=== PATIENT | female | born 1980 | race Two or more races ===

== ENCOUNTER 2023-08-12 14:51 | Outpatient (RCR) | payer MEDICAID, SELFPAY | END 2023-08-31 23:59 | disposition home or self-care (01) | LOC: CPTX 14:51 | PROVIDERS: PCP Family Medicine; Referring Provider Family Medicine; Visit Provider Family Medicine | DX: Z53.9 Procedure and treatment not carried out, unspecified reason (principal) ==

== ENCOUNTER 2024-04-27 12:07 | Emergency (ER) | payer MEDICAID, SELFPAY ==
[2024-04-27 12:19] VITALS: BP 157/68; PULSE 64; RESP 20; TEMP 36.8; O2SAT 97
[2024-04-27 12:20] VITALS: BMI 65.0
[2024-04-27 12:23] VITALS: PULSE 76; RESP 18; O2SAT 97
--- NOTE | 2024-04-27 13:20 | XR_ITS ---
Examination: Lumbar spine 3 views Technique one AP lateral coned lateral lower lumbar spine 3 views Exam date and time: April 27, 2024 1610 hours INDICATIONS: Onset low back pain today. FINDINGS: Adequate alignment lumbar vertebral bodies Mild disc narrowing L4-L5 Moderate disc narrowing L5-S1 No spondylolisthesis IMPRESSION: Moderate degenerative disc disease L5-S1
[2024-04-27] MEDS: CYCLObenzaPRINE 5 MG TABLET 10 MG PO (13:49)
[2024-04-27] MEDS: HYDROcodone/APAP 5/325 TABLET 1 TAB PO (13:49)
[2024-04-27] MEDS: predniSONE 20 MG TABLET 60 MG PO ×2 (13:52)
--- NOTE | 2024-04-27 14:14 | EDNOTE_ITS ---
<Statement entered by Alicia Houser MD - 05/03/24 17:55> As co-signing physician, I was present and available for consult prn. I concur with the plan and care as documented by the midlevel provider. ED Back Injury Pain RME/HPI General Chief Complaint: Back Pain/Injury Stated Complaint: LOWER BACK PAIN Time Seen by Provider: 04/27/24 13:26 Source: patient Arrival date/time: 04/27/24 12:07 43-year-old female presents to the emergency department with complaints of lower back pain. History of degenerative disc disease and chronic pain presents with complaints of pain to her lower back for approximately 3 days. Reports she was seen by her PCP was given a Toradol shot however no symptoms improved. No fever, weakness, abdominal pain, saddle anesthesia, bowel/bladder incontinence noted. No hx of IVDA. Gait and sensation intact. Mode of arrival: ambulatory Limitations: no limitations Related Data Previous Rx's ?Medication ?Instructions ?Recorded hydrocodone 5 mg-acetaminophen 325 1 tab PO BID PRN pain #10 tabs 06/13/21 mg tablet ibuprofen 800 mg tablet 800 mg PO TID PRN pain #30 tabs 06/13/21 tramadol 50 mg tablet 50 mg PO TID PRN pain #21 tabs 11/21/21 cyclobenzaprine 10 mg tablet 10 mg PO TID PRN muscle spasm #20 01/17/22 tabs tramadol 50 mg tablet 50 mg PO TID PRN pain #21 tabs 01/17/22 cephalexin 500 mg capsule 500 mg PO QID #28 caps 03/08/22 tramadol 100 mg tablet 100 mg PO Q6H PRN pain #20 tabs 03/08/22 acetaminophen 500 mg capsule 500 mg PO Q6H PRN pain #60 caps 09/24/22 baclofen 5 mg tablet 5 mg PO BID #30 tabs 09/24/22 hydrocodone 5 mg-acetaminophen 325 1 tab PO BID PRN pain #10 tabs 12/25/22 mg tablet ibuprofen 800 mg tablet 800 mg PO TID PRN pain #30 tabs 12/25/22 naproxen 500 mg tablet 500 mg PO BID #30 tabs 07/19/23 acetaminophen 500 mg tablet 1,000 mg (2 x 500 mg) PO Q6H PRN 01/16/24 (Tylenol Extra Strength) pain #30 tabs ibuprofen 600 mg tablet 600 mg PO Q6H PRN pain #30 tabs 01/16/24 cyclobenzaprine 5 mg tablet 5 mg PO TID PRN muscle spasm #14 04/27/24 tabs hydrocodone 7.5 mg-acetaminophen 1 tab PO Q8H PRN pain #7 tabs 04/27/24 325 mg tablet Allergies Allergy/AdvReac Type Severity Reaction Status Date / Time adhesive tape Allergy Severe rash Verified 12/29/23 19:35 Penicillins Allergy Severe Rash Verified 12/29/23 19:35 Sulfa (Sulfonamide Allergy Severe Rash Verified 12/29/23 19:35 Antibiotics) Review of Systems Review of Systems Systems Reviewed: All systems reviewed, normal except as documented Narrative Review of Systems: Gen: No fever, no chills, no weight loss EYES: No discharge, no visual changes, no pain HEENT: No ear pain, no congestion, no sore throat PULM: No shortness of breath, no cough, no congestion CV: No chest pain, no dyspnea on exertion, no palpitations GI: No nausea, no vomiting, no diarrhea, no pain, no constipation : No frequency, no urgency,? no dysuria Musc/skel: No joint pain, ++ back pain Skin: No rash? ED Exam Narrative Physical exam: 43-year-old female awake and alert obese patient answering questions General Limitations: Present no limitations General appearance: Present alert and other (Appears to be in pain) Head Head exam: Present atraumatic Eye Eye exam: Present normal appearance, PERRL and EOMI ENT ENT exam: Present normal exam, normal oropharynx and mucous membranes moist Neck Neck exam: Present normal inspection, full ROM and trachea midline Chest Chest inspection: Present normal inspection and symmetric chest wall rise Respiratory Respiratory exam: Present normal lung sounds bilaterally Cardiovascular Cardiovascular exam: Present regular rate, normal rhythm and normal heart sounds Abdominal Exam Abdominal exam: Present soft and normal bowel sounds Extremities Exam Extremities exam: Present normal inspection and full ROM Back Exam Back exam: Present normal inspection, full ROM, muscle spasm and paraspinal tenderness; Absent CVA tenderness (R), CVA tenderness (L) or vertebral tenderness Neurological Exam Neurological exam: Present alert, oriented X3 and CN II-XII intact Psychiatric Psychiatric exam: Present normal affect and normal mood Skin Skin exam: Present warm, dry, intact and normal color Course Quality Measures none Orders Category Date Time Status XR lumbar spine 2-3V Stat Exams 04/27/24 13:20 Completed HCG Qualitative,Urine Stat Lab 04/27/24 15:19 Completed CYCLObenzaPRINE [Flexeril] Med 04/27/24 13:21 Discontinued 10 mg PO X1 ONE HYDROcodone*/APAP 5/325 [Ellerbe 5/325] Med 04/27/24 13:21 Discontinued 1 tab PO X1 ONE predniSONE Med 04/27/24 13:21 Discontinued 60 mg PO X1 ONE Vital Signs Vital signs: Vital Signs Temperature 98.3 F 04/27/24 12:19 Pulse Rate 64 04/27/24 12:19 Respiratory Rate 20 04/27/24 12:19 Blood Pressure 157/68 H 04/27/24 12:19 Pulse Oximetry (%) 97 04/27/24 12:19 Oxygen Delivery Method Room Air 04/27/24 12:19 Back Pain / Injury Patient data External records reviewed:: [facility] previous records Clinical information provided by:: patient Social determinants that could affect healthcare access:: none Patient has the following chronic illnesses:: Chronic back pain How is presenting disease/condition affected by chronic disease/condition?: exacerbated by Evaluation data The following diagnostics were reviewed and interpreted by me:: radiology exam(s) Lab and/or radiology exams considered but not ordered:: No Interpretation Summary: Examination: Lumbar spine 3 views Technique one AP lateral coned lateral lower lumbar spine 3 views Exam date and time: April 27, 2024 1610 hours INDICATIONS: Onset low back pain today. FINDINGS: Adequate alignment lumbar vertebral bodies Mild disc narrowing L4-L5 Moderate disc narrowing L5-S1 No spondylolisthesis IMPRESSION: Moderate degenerative disc disease L5-S1 Medications / Prescriptions Medications or Prescriptions considered but not ordered:: No Medication administrations:: Medication Administration History Discontinued Medications Hydrocodone Bitart/Acetaminophen (Hydrocodone/Apap 5/325 Tablet) 1 tab PO X1 ONE Stop: 04/27/24 13:22 Last Admin: 04/27/24 13:49 Dose: 1 tab Documented By: VIN Cyclobenzaprine HCl (Cyclobenzaprine 5 Mg Tablet) 10 mg PO X1 ONE Stop: 04/27/24 13:22 Last Admin: 04/27/24 13:49 Dose: 10 mg Documented By: VIN Prednisone (Prednisone 20 Mg Tablet) 60 mg PO X1 ONE Stop: 04/27/24 13:22 Last Admin: 04/27/24 13:52 Dose: 40 mg Documented By: Admin: 04/27/24 13:52 Dose: 20 mg Documented By: VIN All medications administered and effective Consultations Consultation(s) initiated? (list below): No Diagnosis Differential diagnosis back pain/injury: lumbar radiculopathy, sciatica and strain of lumbar region Most likely diagnosis given after review of the tests above:: Lumbar radiculopathy Admission Indicated Admission indicated?: not indicated Admission Request Was there a request for admission?: No Disposition Plan Disposition Plan: Discharge Discharge Attestation Discharge Attestation: The patient and all family members were given an opportunity to ask questions and understood the discharge instructions. Discharge instructions specifically effects, indications for sooner follow up or return to the emergency department, and the expected course of current diagnosis. Patient condition: Stable Discharge Plan Plan Patient Disposition: HOME (Self Care) Patient condition on transfer: Stable Prescriptions/Referrals Prescriptions/Med Rec: New hydrocodone-acetaminophen 7.5-325 mg tablet 1 tab PO Q8H MDD 3 PRN (Reason: pain) Qty: 7 0RF cyclobenzaprine 5 mg tablet 5 mg PO TID PRN (Reason: muscle spasm) Qty: 14 0RF No Action ibuprofen 800 mg tablet 800 mg PO TID PRN (Reason: pain) Qty: 30 0RF hydrocodone-acetaminophen 5-325 mg tablet 1 tab PO BID MDD 10 PRN (Reason: pain) Qty: 10 0RF tramadol 50 mg tablet 50 mg PO TID PRN (Reason: pain) Qty: 21 0RF acetaminophen 500 mg capsule 500 mg PO Q6H PRN (Reason: pain) Qty: 60 0RF baclofen 5 mg tablet 5 mg PO BID Qty: 30 0RF ibuprofen 800 mg tablet 800 mg PO TID PRN (Reason: pain) Qty: 30 0RF hydrocodone-acetaminophen 5-325 mg tablet 1 tab PO BID MDD 10 PRN (Reason: pain) Qty: 10 0RF ibuprofen 600 mg tablet 600 mg PO Q6H PRN (Reason: pain) Qty: 30 0RF acetaminophen [Tylenol Extra Strength] 500 mg tablet 1,000 mg PO Q6H PRN (Reason: pain) Qty: 30 0RF tramadol 50 mg tablet 50 mg PO TID PRN (Reason: pain) Qty: 21 0RF cyclobenzaprine 10 mg tablet 10 mg PO TID PRN (Reason: muscle spasm) Qty: 20 0RF tramadol 100 mg tablet 100 mg PO Q6H PRN (Reason: pain) Qty: 20 0RF cephalexin 500 mg capsule 500 mg PO QID Qty: 28 0RF naproxen 500 mg tablet 500 mg PO BID Qty: 30 0RF Referrals: No Primary/Family,Physician [Primary Care Provider] - In 1 week Problem List Clinical Impression: Degenerated intervertebral disc Patient/Caregiver Discharge Instructions Discharge Activity: activity as tolerated Additional Instructions: It is very important that you follow-up with your primary doctor for further evaluation about your back. Advised patient of nonpharmacologic treatment with superficial heat, massage, acupuncture, or spinal manipulation If pharmacologic treatment is desired, good choice is nonsteroidal anti- inflammatory drugs (NSAIDs) or skeletal muscle relaxants. Advised patient that Physical therapy is often incorporated as a component of conservative therapy Advised to start medications of: Flexeril, a couple of Ellerbe's was sent to the pharmacy. Turn to the emergency department this any worsening symptoms change in condition. Print Language: Citizen Of [place] Stand Alone Forms: Andreea Award Info., Patient Portal Info Letter PA/DAFNE Supervising Physician PA/DAFNE Supervising Physician: dr Heard
[2024-04-27 15:56] LABS: HCG Qualitative,Urine Negative
== END 2024-04-27 17:07 | disposition home or self-care (01) ==
PROVIDERS: Nurse Practitioner Primary Care; Emergency Provider Emergency Medicine
DX: M51.370 Other intervertebral disc degeneration, lumbosacral region with discogenic back pain only (principal)
CPT/HCPCS: 72100; 81025; 99283; J7512; A9270

== ENCOUNTER 2024-05-20 11:19 | Emergency (ER) | payer MEDICAID, SELFPAY ==
[2024-05-20 11:19] VITALS: BMI 65.6
[2024-05-20 11:30] VITALS: BP 137/78; PULSE 70; RESP 20; TEMP 37.1; O2SAT 97
--- NOTE | 2024-05-20 11:40 | EKG_ITS ---
[facility] Test Date: 2024-05-20 Pat Name: JEANNE JACKSON Department: Room: - Gender: Female Health Information Coder: : [id number] Requested By: Neville Ross Order Number: [id number] Reading MD: Neville Ross Measurements Intervals [place] Rate: 68 P: 38 NE: 169 QRS: -5 QRSD: 104 T: 2 QT: 395 QTc: 422 Interpretive Statements SINUS RHYTHM Compared to ECG 10/12/2019 21:59:38 No significant changes /store/S0/[id number].pdf
--- NOTE | 2024-05-20 11:40 | XR_ITS ---
Examination: PA chest single view Technique: Upright PA chest single view Exam date and time: May 20, 2024 1205 hrs. Indications: Shortness of breath today chest pain Findings: Mild prominence left ventricle. No pneumonia or pulmonary edema. The osseous structures are intact Impression: No active disease
--- NOTE | 2024-05-20 11:40 | XR_ITS ---
Examination: CT brain head without contrast. 2-D sagittal coronal reconstructions Date and time of exam:May 20, 2024 1247 hrs. Indications: Headaches dizziness beginning today CTDI: vol (mGy):57.5 DLP: (mGycm):1156 Technique: Multiple CT axial sections of the brain have been obtained, 5 mm slice thickness. Contrast has not been administered. 2-D sagittal, coronal reconstructions have been obtained Low dose protocols were performed. One or more of the following dose reduction techniques were used; automated exposure control, adjustment of the mA and/or KV according to patient size, use of iterative reconstruction technique. Findings: No significant ventricular enlargement. Intra-axial or extra-axial hemorrhage density is not seen. No mass effect or midline shift Basal cisterns are not remarkable. Fourth ventricle is midline. Cranial vault intact. Impression: Negative for acute hemorrhage, mass effect or midline shift As clinically warranted, if symptoms persist, consider brain MRI follow-up without contrast
--- NOTE | 2024-05-20 11:44 | EDNOTE_ITS ---
<Statement entered by Alicia Houser MD - 05/20/24 15:34> As co-signing physician, I was present and available for consult prn. I concur with the plan and care as documented by the midlevel provider. ED Dizzyness RME/HPI General Chief Complaint: Dizziness Stated Complaint: DIZZINESS X30 MINS. Time Seen by Provider: 05/20/24 11:35 Arrival date/time: 05/20/24 11:19 RME / HPI RME / HPI Narrative: 43-year-old female patient with no significant medical history, except for morbid obesity, came in with family for evaluation regarding sudden onset of dizziness. Patient developed sudden onset of dizziness, described as everything spinning, severity moderate, associated with headache, nausea, neck pain, left arm pain. Patient denies any upper or lower extremity weakness. Patient is ambulatory. Denies any fever denies any sore throat denies any cough. No medications taken prior to arrival. Related Data Previous Rx's ?Medication ?Instructions ?Recorded hydrocodone 5 mg-acetaminophen 325 1 tab PO BID PRN pain #10 tabs 06/13/21 mg tablet ibuprofen 800 mg tablet 800 mg PO TID PRN pain #30 tabs 06/13/21 tramadol 50 mg tablet 50 mg PO TID PRN pain #21 tabs 11/21/21 cyclobenzaprine 10 mg tablet 10 mg PO TID PRN muscle spasm #20 01/17/22 tabs tramadol 50 mg tablet 50 mg PO TID PRN pain #21 tabs 01/17/22 cephalexin 500 mg capsule 500 mg PO QID #28 caps 03/08/22 tramadol 100 mg tablet 100 mg PO Q6H PRN pain #20 tabs 03/08/22 acetaminophen 500 mg capsule 500 mg PO Q6H PRN pain #60 caps 09/24/22 baclofen 5 mg tablet 5 mg PO BID #30 tabs 09/24/22 hydrocodone 5 mg-acetaminophen 325 1 tab PO BID PRN pain #10 tabs 12/25/22 mg tablet ibuprofen 800 mg tablet 800 mg PO TID PRN pain #30 tabs 12/25/22 naproxen 500 mg tablet 500 mg PO BID #30 tabs 07/19/23 acetaminophen 500 mg tablet 1,000 mg (2 x 500 mg) PO Q6H PRN 01/16/24 (Tylenol Extra Strength) pain #30 tabs ibuprofen 600 mg tablet 600 mg PO Q6H PRN pain #30 tabs 01/16/24 cyclobenzaprine 5 mg tablet 5 mg PO TID PRN muscle spasm #14 04/27/24 tabs hydrocodone 7.5 mg-acetaminophen 1 tab PO Q8H PRN pain #7 tabs 04/27/24 325 mg tablet meclizine 50 mg tablet 50 mg PO BID PRN dizziness #30 tabs 05/20/24 Allergies Allergy/AdvReac Type Severity Reaction Status Date / Time adhesive tape Allergy Severe rash Verified 05/20/24 11:22 Penicillins Allergy Severe Rash Verified 05/20/24 11:22 Sulfa (Sulfonamide Allergy Severe Rash Verified 05/20/24 11:22 Antibiotics) Review of Systems Review of Systems Narrative Review of Systems: Review of system reviewed and within normal limits except mentioned in HPI ED Exam Narrative Physical exam: VITAL SIGNS: Reviewed. GENERAL APPEARANCE: Alert and interactive, follows commands, no acute distress, HEAD AND FACE: Non-traumatic. ENT: PERRL, pink conjunctivitis, eyelid no trauma, Mucous membrane moist. NECK: Supple, nontender, no nuchal rigidity. CHEST: No tenderness, no crepitus, no paradoxical movement, no retractions. LUNGS: Clear, well ventilated, symmetric, no rales, no wheezing, no ronchi, no stridor, good breath sounds bilaterally. HEART: Regular rate, regular rhythm, no murmur, no gallops. ABDOMEN: Soft, positive bowel sounds, nondistended, no guarding, nontender, no rebound, no masses, RECTAL: Deferred. GENITAL: Deferred. NEUROLOGICAL: Gross motor function intact sensory function intact, Appropriate for age. MUSCULOSKELETAL: low back nontender, full range of motion. EXTREMITIES: Nontender, full range of motion. SKIN: Color pink, dry, no rash, no lacerations, no abrasions, no contusions. LYMPHATICS: Deferred. Course Quality Measures none Orders Category Date Time Status EKG (ED ONLY) *Do not use* NOW Care 05/20/24 11:[address] head/brain wo con Stat Exams 05/20/24 11:40 Completed EKG (ED Only) Stat Exams 05/20/24 11:40 Draft XR chest 1V Stat Exams 05/20/24 11:40 Completed B-Type Natriuretic Peptide Stat Lab 05/20/24 12:03 Completed CBC Stat Lab 05/20/24 12:03 Completed Comprehensive Metabolic Panel Stat Lab 05/20/24 12:03 Completed HCG Qualitative,Urine Stat Lab 05/20/24 12:00 Completed Partial Thromboplastin Time Stat Lab 05/20/24 12:03 Completed Troponin I Stat Lab 05/20/24 12:03 Completed Urinalysis, C/S if Indicated Stat Lab 05/20/24 12:00 Completed Acetaminophen Tab [Tylenol ES Tab] Med 05/20/24 11:40 Discontinued 1,000 mg PO X1 ONE Meclizine HCl [Antivert] Med 05/20/24 11:40 Discontinued 50 mg PO X1 ONE Ondansetron Odt [Zofran Odt] Med 05/20/24 11:40 Discontinued 4 mg PO X1 ONE Vital Signs Vital signs: Vital Signs Temperature 98.7 F 05/20/24 11:30 Pulse Rate 70 05/20/24 11:30 Respiratory Rate 20 05/20/24 11:30 Blood Pressure 137/78 H 05/20/24 11:30 Pulse Oximetry (%) 97 05/20/24 11:30 Oxygen Delivery Method Room Air 05/20/24 11:30 Dizziness MDM Narrative MDM Narrative:: 43-year-old female patient with no significant medical history, except for morbid obesity, came in with family for evaluation regarding sudden onset of dizziness. Patient developed sudden onset of dizziness, described as everything spinning, severity moderate, associated with headache, nausea, neck pain, left arm pain. Patient denies any upper or lower extremity weakness. Patient is ambulatory. Denies any fever denies any sore throat denies any cough. No medications taken prior to arrival CT scan of the head came back unremarkable. Chest x-ray also came back unremarkable laboratory workup all also all came back unremarkable. Patient is ambulatory 3 with no recurrence of dizziness . Treated with Meclizine and Tylenol with dramatic improvement Additionally considered atypical ACS but EKG normal and trop neg which is reassuring Patient appears nontoxic and hemodynamically stable. Patient discharged home and instructed to follow-up with primary care provider in 24 to 48 hours. Instructed to return to the emergency department immediately if worsening of symptoms Patient data External records reviewed:: None Clinical information provided by:: patient Social determinants that could affect healthcare access:: none Patient has the following chronic illnesses:: obesity How is presenting disease/condition affected by chronic disease/condition?: no chronic disease Evaluation data The following diagnostics were reviewed and interpreted by me:: lab results, radiology exam(s) and EKG tracing(s) Lab and/or radiology exams considered but not ordered:: None Interpretation Summary: EKG as interpreted by me showed sinus rhythm, ventricular rate of 65 bpm, no ST segment elevation depression noted. CT head came back unremarkable. Laboratory workup came back unremarkable. I personally reviewed and interpreted the x-ray of this patient. There is no acute abnormalities found, no infiltrates no pneumothorax no hemothorax normal chest x-ray. Review of other structures was without significant abnormal findings also. I additionally reviewed the radiologist report and agree with the interpretation. Meclizine Tylenol Zofran Medications / Prescriptions Medications or Prescriptions considered but not ordered:: Stable Medication administrations:: Medication Administration History Discontinued Medications Acetaminophen (Acetaminophen 500 Mg Tablet) 1,000 mg PO X1 ONE Stop: 05/20/24 11:41 Last Admin: 05/20/24 12:16 Dose: 1,000 mg Documented By: Meclizine HCl (Meclizine Hcl 25 Mg Tablet) 50 mg PO X1 ONE Stop: 05/20/24 11:41 Last Admin: 05/20/24 12:17 Dose: 50 mg Documented By: Ondansetron HCl (Ondansetron Odt 4 Mg Tabrap) 4 mg PO X1 ONE; Protocol Stop: 05/20/24 11:41 Last Admin: 05/20/24 12:17 Dose: 4 mg Documented By: Meclizine Tylenol and Zofran Consultations Consultation(s) initiated? (list below): No Diagnosis Dizziness Differential Diagnosis: benign paroxysmal positional vertigo and cerebrovascular accident Most likely diagnosis given after review of the tests above:: Dizziness Admission Indicated Admission indicated?: not indicated Admission Request Was there a request for admission?: No Disposition Plan Disposition Plan: Discharge Discharge Attestation Discharge Attestation: The patient and all family members were given an opportunity to ask questions and understood the discharge instructions. Discharge instructions specifically effects, indications for sooner follow up or return to the emergency department, and the expected course of current diagnosis. Patient condition: Stable Discharge Plan Plan Patient Disposition: HOME (Self Care) Disposition Comment: stable Prescriptions/Referrals Prescriptions/Med Rec: New meclizine 50 mg tablet 50 mg PO BID PRN (Reason: dizziness) Qty: 30 0RF No Action ibuprofen 800 mg tablet 800 mg PO TID PRN (Reason: pain) Qty: 30 0RF hydrocodone-acetaminophen 5-325 mg tablet 1 tab PO BID MDD 10 PRN (Reason: pain) Qty: 10 0RF tramadol 50 mg tablet 50 mg PO TID PRN (Reason: pain) Qty: 21 0RF acetaminophen 500 mg capsule 500 mg PO Q6H PRN (Reason: pain) Qty: 60 0RF baclofen 5 mg tablet 5 mg PO BID Qty: 30 0RF ibuprofen 800 mg tablet 800 mg PO TID PRN (Reason: pain) Qty: 30 0RF hydrocodone-acetaminophen 5-325 mg tablet 1 tab PO BID MDD 10 PRN (Reason: pain) Qty: 10 0RF ibuprofen 600 mg tablet 600 mg PO Q6H PRN (Reason: pain) Qty: 30 0RF acetaminophen [Tylenol Extra Strength] 500 mg tablet 1,000 mg PO Q6H PRN (Reason: pain) Qty: 30 0RF tramadol 50 mg tablet 50 mg PO TID PRN (Reason: pain) Qty: 21 0RF cyclobenzaprine 10 mg tablet 10 mg PO TID PRN (Reason: muscle spasm) Qty: 20 0RF tramadol 100 mg tablet 100 mg PO Q6H PRN (Reason: pain) Qty: 20 0RF cephalexin 500 mg capsule 500 mg PO QID Qty: 28 0RF naproxen 500 mg tablet 500 mg PO BID Qty: 30 0RF hydrocodone-acetaminophen 7.5-325 mg tablet 1 tab PO Q8H MDD 3 PRN (Reason: pain) Qty: 7 0RF cyclobenzaprine 5 mg tablet 5 mg PO TID PRN (Reason: muscle spasm) Qty: 14 0RF Referrals: No Primary/Family,Physician [Primary Care Provider] - In 1 week Problem List Clinical Impression: Dizziness, Vertigo Patient/Caregiver Discharge Instructions Discharge Activity: activity as tolerated Education Materials: Vertigo Medicine Tx Additional Instructions: Thank you for the opportunity for serving you today. You are stable for discharged . You are advised to: Follow-up with your PCP in 1 to 2 days Return to ED for worsening of symptoms Increase oral fluids Take medication as prescribed Print Language: [place] Stand Alone Forms: STinser Award Info., Patient Portal Info Letter PA/BRANNER MACHINE TENDER Supervising Physician PA/BRANNER MACHINE TENDER Supervising Physician: MD Yosi
[2024-05-20 12:12] LABS: Collection Type, Urine Clean Catch
[2024-05-20] MEDS: ACETAMINOPHEN 500 MG TABLET 1000 MG PO (12:16)
[2024-05-20] MEDS: ONDANSETRON ODT 4 MG TABRAP PO (12:17)
[2024-05-20] MEDS: MECLIZINE HCL 25 MG TABLET 50 MG PO (12:17)
[2024-05-20 12:21] LABS: Basophils # (Auto) 0.1 Thou/mm3 (0.0-0.2); Basophils % (Auto) 1 % (0-2.5); Eosinophils # (Auto) 0.4 Thou/mm3 (0.0-0.5); Eosinophils % (Auto) 5 % (0-10); Hematocrit 42.2 % (36.0-46.0); Hemoglobin 14.4 g/dL (12.0-16.0); Immature Granulocytes % (Auto) 1 % (0-0); Immature Granulocytes Auto 0.04 Thou/mm3 (0.00-0.00); Lymphocytes # (Auto) 2.5 Thou/mm3 (1.0-4.8); Lymphocytes % (Auto) 28 % (10-50); Mean Corpuscular HGB Conc 34.1 g/dl (31.0-37.0); Mean Corpuscular Hemoglobin 32.1 pg (25.0-35.0); Mean Corpuscular Volume 94 fL (80-100); Monocytes # (Auto) 0.5 Thou/mm3 (0.0-0.8); Monocytes % (Auto) 6 % (0-12); Neutrophils # (Auto) 5.3 Thou/mm3 (1.8-7.7); Neutrophils % (Auto) 60 % (37-80); Nucleated Red Blood Cell % 0 /100 WBC (0); Platelet Count 168 Thou/mm3 (140-440); RDW Standard Deviation 45.1 fL (36.4-46.3); Red Blood Count 4.49 Miln/mm3 (4.00-5.20); White Blood Count 8.9 Thou/mm3 (3.6-11.0)
[2024-05-20 12:26] LABS: HCG Qualitative,Urine Negative
[2024-05-20 12:29] LABS: Bilirubin,Urine Negative (Negative); Blood,Urine Negative (Negative); Clarity,Urine Turbid (Clear/Hazy); Color,Urine Yellow (Lt Yel-Yel); Culture Indicated,Urine Not Indicated; Glucose, Urine Negative (Negative); Ketones,Urine Negative (Negative); Leukocyte Esterase,Urine Negative (Negative); Nitrite,Urine Negative (Negative); Protein,Urine Negative (Neg - Trace); RBC,Urine 1 /hpf (0-3); Specific Gravity,Urine 1.021 (1.001-1.035); Squamous Epithelial Cell,Urine 8 /hpf (0-5); Urobilinogen,Urine Negative mg/dL (0.0-1.0); WBC,Urine 1 /hpf (0-5)
[2024-05-20 12:33] LABS: Partial Thromboplastin Time 20.5 Seconds (22.0-36.0)
[2024-05-20 12:38] LABS: Alanine Aminotransferase 25 U/L (10-49); Albumin, Serum 4.5 gm/dL (3.5-5.0); Albumin/Globulin Ratio 1.7 (1.2-2.2); Alkaline Phosphatase 76 U/L (46-116); Anion Gap 9 (7-16); Aspartate Amino Transferase 10 U/L (0-34); BUN/Creatinine Ratio 15 Ratio (12-20); Bilirubin,Total 0.8 mg/dL (0.3-1.2); Blood Urea Nitrogen 9 mg/dL (9-23); Calcium 9.7 mg/dL (8.3-10.6); Calcium (Corrected) 9.7 mg/dL (8.5-10.1); Carbon Dioxide 23.6 mMol/L (20.0-31.0); Chloride 105 mMol/L (98-107); Creatinine (Component) 0.6 mg/dL (0.6-1.3); Globulin 2.7 gm/dL (2.3-3.5); Glucose 102 mg/dL (74-106); Osmolality,Calculated 274 (275-295); Potassium 4.1 mMol/L (3.4-5.1); Sodium 138 mMol/L (136-145); Total Protein 7.2 gm/dL (5.7-8.2); Troponin I < 0.002 ng/mL (0.0-0.045); eGFR > 60 See Note
[2024-05-20 12:54] LABS: B-Type Natriuretic Peptide < 20 pg/mL (0-100)
== END 2024-05-20 14:58 | disposition home or self-care (01) ==
PROVIDERS: Nurse Practitioner Family; Emergency Provider Emergency Medicine
DX: R42 Dizziness and giddiness (principal)
CPT/HCPCS: 36415; 70450; 71045; 80053; 81001; 81025; 83880; 84484; 85025; 85730; 93005; 99284; Q0162; A9270

== ENCOUNTER 2024-09-13 20:52 | Emergency (ER) | payer MEDICAID, SELFPAY ==
[2024-09-13 21:04] VITALS: BP 142/91; PULSE 84; RESP 18; TEMP 37.3; O2SAT 97; BMI 64.0
--- NOTE | 2024-09-13 21:29 | EDNOTE_ITS ---
ED Extremity Problem RME/HPI General Chief complaint: Extremity Problem,Nontraumatic Stated complaint: BILATERAL LEG PAIN AND SWELLING, DIFF WALKING Time Seen by Provider: 09/13/24 21:12 Source: patient Arrival date/time: 09/13/24 20:52 44-year-old female presents to the ED with a complaint of left and right ankle and knee pain patient denies any trauma excessive walking or around exercise. Her left knee pain has been the source of her problem for approximately a week. Mode of arrival: ambulatory Limitations: no limitations RME / HPI MD Complaint: extremity pain and extremity swelling Onset (ago): week(s) Consistency: constant Location: left, right, lower extremity, knee (LEFT AND RIGHT.) and other (ANKLES LEFT AND RIGHT.) Severity scale (1-10): 6 Quality: sharp Related Data Previous Rx's ?Medication ?Instructions ?Recorded hydrocodone 5 mg-acetaminophen 325 1 tab PO BID PRN pa in #10 tabs 06/13/21 mg tablet ibuprofen 800 mg tablet 800 mg PO TID PRN pain #30 t abs 06/13/21 tramadol 50 mg tablet 50 mg PO TID PRN pain #21 ta bs 11/21/21 cyclobenzaprine 10 mg tablet 10 mg PO TID PRN muscle s pasm #20 01/17/22 tabs tramadol 50 mg tablet 50 mg PO TID PRN pain #21 ta bs 01/17/22 cephalexin 500 mg capsule 500 mg PO QID #28 caps 03/08 tramadol 100 mg tablet 100 mg PO Q6H PRN pain #20 t abs 03/08/22 acetaminophen 500 mg capsule 500 mg PO Q6H PRN pain #6 0 caps 09/24/22 baclofen 5 mg tablet 5 mg PO BID #30 tabs 3 hydrocodone 5 mg-acetaminophen 325 1 tab PO BID PRN pa in #10 tabs 12/25/22 mg tablet ibuprofen 800 mg tablet 800 mg PO TID PRN pain #30 t abs 12/25/22 naproxen 500 mg tablet 500 mg PO BID #30 tabs 07/18 acetaminophen 500 mg tablet 1,000 mg (2 x 500 mg) PO Q 6H PRN 01/16/24 (Tylenol Extra Strength) pain #30 tabs ibuprofen 600 mg tablet 600 mg PO Q6H PRN pain #30 t abs 01/16/24 cyclobenzaprine 5 mg tablet 5 mg PO TID PRN muscle spa sm #14 04/27/24 tabs hydrocodone 7.5 mg-acetaminophen 1 tab PO Q8H PRN pain #7 tabs 04/27/24 325 mg tablet meclizine 50 mg tablet 50 mg PO BID PRN dizziness # 30 tabs 05/20/24 naproxen sodium 550 mg tablet 550 mg PO Q12H PRN pain #20 tabs 09/13/24 Allergies Allergy/AdvReac Type Severity Reaction Status Date / Time adhesive tape Allergy Severe rash Verified 09/13/24 20:54 Penicillins Allergy Severe Rash Verified 09/13/24 20:54 Sulfa (Sulfonamide Allergy Severe Rash Verified 09/13/24 20:54 Antibiotics) Review of Systems Constitutional Constitutional: Reports system reviewed and no additional complaints, except as documented Eyes Eyes: Reports system reviewed and no additional complaints, except as documented, Denies dry eyes, Denies exophthalmos and Reports floaters Cardiovascular Cardiovascular: Denies chest pain with activity and Denies claudication Past Medical History Past Medical History NEUROLOGIC: Negative Neurological Disorders CARDIAC: Positive Hypertension; Negative Cardiac Disorders or Congestive Heart Failure RESPIRATORY: Positive Asthma and Sleep Apnea; Negative Chronic Obstructive Pulmonary Disease (COPD) GASTROINTESTINAL: Positive Gastrointestinal Disorders, Gastroesophageal Reflux Disease and Obesity GENITOURINARY: Negative Renal Disease MUSCULOSKELETAL: Positive Musculoskeletal Disorders, Arthritis and Degenerative Joint Disease ENDOCRINE: Negative Diabetes Mellitus Type 1 or Diabetes Mellitus Type 2 HEMATOLOGIC: Negative Sickle Cell Disease PSYCHO/SOCIAL: Positive Bipolar Disorder, Depression and Anxiety Surgical History SURGICAL: Positive Section Social History SMOKING STATUS: Never smoker SUBSTANCE USE: does not use ED Exam General Limitations: Present no limitations General appearance: Present alert and in no apparent distress Head Head exam: Present atraumatic Eye Eye exam: Present normal appearance, PERRL and EOMI ENT ENT exam: Present normal exam, normal oropharynx and mucous membranes moist Neck Neck exam: Present normal inspection, full ROM and trachea midline Chest Chest inspection: Present normal inspection and symmetric chest wall rise Extremities Exam Extremities exam: Present normal inspection, full ROM, tenderness, joint swelling and other (Lower extremities demonstrate decreased range of motion secondary to subjective pain. Neurovascular is intact and there is no apparent trauma, bony involvement or ecchymoses. No apparent neurofocal deficit.) Back Exam Back exam: Present normal inspection and full ROM Neurological Exam Neurological exam: Present alert, oriented X3 and CN II-XII intact Psychiatric Psychiatric exam: Present normal affect and normal mood Skin Skin exam: Present warm, dry, intact and normal color Course Course Course Narrative: Patient will have 30 mg of Toradol IM and she is discharged in no apparent distress. Patient to follow-up primary care physician as needed. Quality Measures none Orders Category Date Time Status Dexamethasone Inj [Decadron Inj] Med 09/13/24 21:13 Discontinued 10 mg IM X1 ONE Ketorolac Inj [Toradol Inj] Med 09/13/24 21:20 Discontinued 30 mg IM X1 ONE Vital Signs Vital signs: Vital Signs Temperature 99.1 F 09/13/24 21:04 Pulse Rate 84 09/13/24 21:04 Respiratory Rate 18 09/13/24 21:04 Blood Pressure 142/91 H 09/13/24 21:04 Pulse Oximetry (%) 97 09/13/24 21:04 Oxygen Delivery Method Room Air 09/13/24 21:04 Pulse ox is 97% room air Extremity Problem MDM Narrative MDM Narrative:: Patient will have 30 mg of Toradol and she will be discharged to home in no appa rent distress. Patient data External records reviewed:: Other (specify) Clinical information provided by:: none Social determinants that could affect healthcare access:: none Patient has the following chronic illnesses:: Morbid obesity How is presenting disease/condition affected by chronic disease/condition?: caused by Evaluation data The following diagnostics were reviewed and interpreted by me:: lab results (NA) Lab and/or radiology exams considered but not ordered:: NA Interpretation Summary: NA Medications / Prescriptions Medications or Prescriptions considered but not ordered:: NA Medication administrations:: Medication Administration History Discontinued Medications Dexamethasone Sodium Phosphate (Dexamethasone Sod Phos Inj 10 Mg/Ml Vial) 10 mg IM X1 ONE Stop: 09/13/24 21:14 Last Admin: 09/13/24 21:18 Dose: Not Given Documented By: QUIQUE Non-Admin Reason: Cancelled by Provider Ketorolac Tromethamine (Ketorolac Inj 60 Mg/2 Ml Vial) 30 mg IM X1 ONE Stop: 09/13/24 21:21 Last Admin: 09/13/24 21:33 Dose: 30 mg Documented By: QUIQUE ALBRECHT Consultations Consultation(s) initiated? (list below): No Diagnosis Extremity Problem Differential Diagnosis: superficial thrombophlebitis, lower extremity edema and deep vein thrombosis of lower extremity Most likely diagnosis given after review of the tests above:: NA Admission Indicated Admission indicated?: not indicated Admission Request Was there a request for admission?: No Disposition Plan Disposition Plan: Discharge Discharge Attestation Discharge Attestation: The patient and all family members were given an opportunity to ask questions and understood the discharge instructions. Discharge instructions specifically effects, indications for sooner follow up or return to the emergency department, and the expected course of current diagnosis. Patient condition: Stable Discharge Plan Plan Patient Disposition: HOME (Self Care) Discharge Disposition comment: Patient discharged to home in no apparent distress Patient condition on transfer: Stable Prescriptions/Referrals Prescriptions/Med Rec: New naproxen sodium 550 mg tablet 550 mg PO Q12H PRN (Reason: pain) Qty: 20 0RF No Action ibuprofen 800 mg tablet 800 mg PO TID PRN (Reason: pain) Qty: 30 0RF hydrocodone-acetaminophen 5-325 mg tablet 1 tab PO BID MDD 10 PRN (Reason: pain) Qty: 10 0RF tramadol 50 mg tablet 50 mg PO TID PRN (Reason: pain) Qty: 21 0RF acetaminophen 500 mg capsule 500 mg PO Q6H PRN (Reason: pain) Qty: 60 0RF baclofen 5 mg tablet 5 mg PO BID Qty: 30 0RF ibuprofen 800 mg tablet 800 mg PO TID PRN (Reason: pain) Qty: 30 0RF hydrocodone-acetaminophen 5-325 mg tablet 1 tab PO BID MDD 10 PRN (Reason: pain) Qty: 10 0RF ibuprofen 600 mg tablet 600 mg PO Q6H PRN (Reason: pain) Qty: 30 0RF acetaminophen [Tylenol Extra Strength] 500 mg tablet 1,000 mg PO Q6H PRN (Reason: pain) Qty: 30 0RF tramadol 50 mg tablet 50 mg PO TID PRN (Reason: pain) Qty: 21 0RF cyclobenzaprine 10 mg tablet 10 mg PO TID PRN (Reason: muscle spasm) Qty: 20 0RF tramadol 100 mg tablet 100 mg PO Q6H PRN (Reason: pain) Qty: 20 0RF cephalexin 500 mg capsule 500 mg PO QID Qty: 28 0RF naproxen 500 mg tablet 500 mg PO BID Qty: 30 0RF hydrocodone-acetaminophen 7.5-325 mg tablet 1 tab PO Q8H MDD 3 PRN (Reason: pain) Qty: 7 0RF cyclobenzaprine 5 mg tablet 5 mg PO TID PRN (Reason: muscle spasm) Qty: 14 0RF meclizine 50 mg tablet 50 mg PO BID PRN (Reason: dizziness) Qty: 30 0RF Problem List Clinical Impression: Chronic knee pain, Chronic ankle pain Patient/Caregiver Discharge Instructions Discharge Activity: activity as tolerated Print Language: Estonian PA/HAT BLOCK BENCH HAND Supervising Physician PA/HAT BLOCK BENCH HAND Supervising Physician: GISELA
[2024-09-13] MEDS: KETOROLAC INJ 60 MG/2 ML VIAL 30 MG IM (21:33)
[2024-09-13 22:08] VITALS: RESP 16
== END 2024-09-13 22:09 | disposition home or self-care (01) ==
LOC: SERX 21:50
PROVIDERS: Emergency Provider Emergency Medicine; PCP Family Medicine
DX: G89.29 Other chronic pain (principal); M25.571 Pain in right ankle and joints of right foot; M25.562 Pain in left knee
CPT/HCPCS: 96372; 99283; J1885

== ENCOUNTER 2024-10-21 08:11 | Emergency (ER) | payer MEDICAID, SELFPAY ==
[2024-10-21 08:23] VITALS: BP 132/83; PULSE 77; RESP 16; TEMP 37.1; O2SAT 97; BMI 64.2
--- NOTE | 2024-10-21 09:14 | PD.EDDENTL ---
ED Dental RME/HPI General Chief complaint: Dental/Oral/Throat Stated complaint: Tooth infection, left side, throat pain Time Seen by Provider: 10/21/24 08:21 Arrival date/time: 10/21/24 08:11 This is a 44-year-old female that comes in with complaints of left lower jaw tooth being broken. Patient states that she was recently seen by her primary provider and was prescribed antibiotics for early dental abscess. Patient was prescribed Keflex but states she is allergic to penicillin. Patient states she tried to get a hold of her primary doctor to let her know that she is always been prescribed clindamycin when she has a mouth infection. Patient here to have her antibiotic changed to clindamycin. Patient denies any other symptoms. Patient denies fever or chills. Patient denies any runny nose cough. Related Data Previous Rx's ?Medication ?Instructions ?Recorded hydrocodone 5 mg-acetaminophen 325 1 tab PO BID PRN pain #10 tabs 06/13/21 mg tablet ibuprofen 800 mg tablet 800 mg PO TID PRN pain #30 tabs 06/13/21 tramadol 50 mg tablet 50 mg PO TID PRN pain #21 tabs 11/21/21 cyclobenzaprine 10 mg tablet 10 mg PO TID PRN muscle spasm #20 01/17/22 tabs tramadol 50 mg tablet 50 mg PO TID PRN pain #21 tabs 01/17/22 cephalexin 500 mg capsule 500 mg PO QID #28 caps 03/08/22 tramadol 100 mg tablet 100 mg PO Q6H PRN pain #20 tabs 03/08/22 acetaminophen 500 mg capsule 500 mg PO Q6H PRN pain #60 caps 09/24/22 baclofen 5 mg tablet 5 mg PO BID #30 tabs 09/24/22 hydrocodone 5 mg-acetaminophen 325 1 tab PO BID PRN pain #10 tabs 12/25/22 mg tablet ibuprofen 800 mg tablet 800 mg PO TID PRN pain #30 tabs 12/25/22 naproxen 500 mg tablet 500 mg PO BID #30 tabs 07/19/23 acetaminophen 500 mg tablet 1,000 mg (2 x 500 mg) PO Q6H PRN 01/16/24 (Tylenol Extra Strength) pain #30 tabs ibuprofen 600 mg tablet 600 mg PO Q6H PRN pain #30 tabs 01/16/24 cyclobenzaprine 5 mg tablet 5 mg PO TID PRN muscle spasm #14 04/27/24 tabs hydrocodone 7.5 mg-acetaminophen 1 tab PO Q8H PRN pain #7 tabs 04/27/24 325 mg tablet meclizine 50 mg tablet 50 mg PO BID PRN dizziness #30 tabs 05/20/24 naproxen sodium 550 mg tablet 550 mg PO Q12H PRN pain #20 tabs 09/13/24 clindamycin HCl 300 mg capsule 300 mg PO Q6H 7 days #28 caps 10/21/24 ibuprofen 800 mg tablet 800 mg PO Q6H PRN pain #14 tabs 10/21/24 Allergies Allergy/AdvReac Type Severity Reaction Status Date / Time adhesive tape Allergy Severe rash Verified 10/21/24 08:15 Penicillins Allergy Severe Rash Verified 10/21/24 08:15 Sulfa (Sulfonamide Allergy Severe Rash Verified 10/21/24 08:15 Antibiotics) Review of Systems Review of Systems Systems Reviewed: All systems reviewed, normal except as documented Past Medical History Past Medical History NEUROLOGIC: Negative Neurological Disorders CARDIAC: Positive Hypertension; Negative Cardiac Disorders or Congestive Heart Failure RESPIRATORY: Positive Asthma and Sleep Apnea; Negative Chronic Obstructive Pulmonary Disease (COPD) GASTROINTESTINAL: Positive Gastrointestinal Disorders, Gastroesophageal Reflux Disease and Obesity GENITOURINARY: Negative Renal Disease MUSCULOSKELETAL: Positive Musculoskeletal Disorders, Arthritis and Degenerative Joint Disease ENDOCRINE: Negative Diabetes Mellitus Type 1 or Diabetes Mellitus Type 2 HEMATOLOGIC: Negative Sickle Cell Disease PSYCHO/SOCIAL: Positive Bipolar Disorder, Depression and Anxiety Surgical History SURGICAL: Positive Section Social History SMOKING STATUS: Never smoker SUBSTANCE USE: does not use ED Exam Narrative Physical exam: VITAL SIGNS: Reviewed. GENERAL APPEARANCE: Alert and interactive, follows commands, no acute distress HEAD AND FACE: Non-traumatic. ENT: PERRL, conjuctiva pink and clear, eyelid no trauma, Mucous membrane moist. left lower jaw back partially tooth broken NECK: Supple, nontender, no nuchal rigidity. CHEST: No tenderness, no crepitus, no paradoxical movement, no retractions. LUNGS: breathing even and unlabored HEART: Regular rate, cap refill less than 2 seconds ABDOMEN: Soft, nondistended, no guarding, nontender, no rebound, no masses, NEUROLOGICAL: Gross motor function intact sensory function intact, Appropriate for age. MUSCULOSKELETAL: low back nontender, full range of motion. EXTREMITIES: No redness no swelling no skin breakdown on bilateral foot and leg. Distal neurovascular status intact bilateral foot SKIN: Color pink, dry, no rash, no lacerations, no abrasions, no contusions. Course Quality Measures none Vital Signs Vital signs: Vital Signs Temperature 98.8 F 10/21/24 08:23 Pulse Rate 77 10/21/24 08:23 Respiratory Rate 16 10/21/24 08:23 Blood Pressure 132/83 H 10/21/24 08:23 Pulse Oximetry (%) 97 10/21/24 08:23 Oxygen Delivery Method Room Air 10/21/24 08:23 Dental / Oral MDM Narrative MDM Narrative:: Patient states she is allergic to penicillin. Patient was prescribed Keflex and I did explain to patient that she may not have a reaction to Keflex. Patient insist to have her antibiotic changed to clindamycin. Will send patient home with clindamycin. I explained the patient to follow-up with her primary doctor and her dentist in 1 to 2 days. Come back to the emergency room if symptoms change or worsen. Patient data External records reviewed:: [facility] previous records Clinical information provided by:: patient Social determinants that could affect healthcare access:: none Patient has the following chronic illnesses:: See HPI How is presenting disease/condition affected by chronic disease/condition?: no chronic disease Evaluation data The following diagnostics were reviewed and interpreted by me:: other (specify) (None) Lab and/or radiology exams considered but not ordered:: None Interpretation Summary: None Medications / Prescriptions Medications or Prescriptions considered but not ordered:: None Medication administrations:: See note Consultations Consultation(s) initiated? (list below): No Diagnosis Dental Differential Diagnosis: gingival abscess, dental caries, toothache, dental abscess and fracture of tooth Most likely diagnosis given after review of the tests above:: Dental caries early dental abscess possibly Admission Indicated Admission indicated?: not indicated Admission Request Was there a request for admission?: No Disposition Plan Disposition Plan: Discharge Discharge Attestation Discharge Attestation: The patient and all family members were given an opportunity to ask questions and understood the discharge instructions. Discharge instructions specifically effects, indications for sooner follow up or return to the emergency department, and the expected course of current diagnosis. Patient condition: Stable Discharge Plan Plan Patient Disposition: HOME (Self Care) Patient condition on transfer: Stable Prescriptions/Referrals Prescriptions/Med Rec: New clindamycin HCl 300 mg capsule 300 mg PO Q6H 7 Days Qty: 28 0RF ibuprofen 800 mg tablet 800 mg PO Q6H PRN (Reason: pain) Qty: 14 0RF No Action ibuprofen 800 mg tablet 800 mg PO TID PRN (Reason: pain) Qty: 30 0RF hydrocodone-acetaminophen 5-325 mg tablet 1 tab PO BID MDD 10 PRN (Reason: pain) Qty: 10 0RF tramadol 50 mg tablet 50 mg PO TID PRN (Reason: pain) Qty: 21 0RF acetaminophen 500 mg capsule 500 mg PO Q6H PRN (Reason: pain) Qty: 60 0RF baclofen 5 mg tablet 5 mg PO BID Qty: 30 0RF ibuprofen 800 mg tablet 800 mg PO TID PRN (Reason: pain) Qty: 30 0RF hydrocodone-acetaminophen 5-325 mg tablet 1 tab PO BID MDD 10 PRN (Reason: pain) Qty: 10 0RF ibuprofen 600 mg tablet 600 mg PO Q6H PRN (Reason: pain) Qty: 30 0RF acetaminophen [Tylenol Extra Strength] 500 mg tablet 1,000 mg PO Q6H PRN (Reason: pain) Qty: 30 0RF naproxen sodium 550 mg tablet 550 mg PO Q12H PRN (Reason: pain) Qty: 20 0RF tramadol 50 mg tablet 50 mg PO TID PRN (Reason: pain) Qty: 21 0RF cyclobenzaprine 10 mg tablet 10 mg PO TID PRN (Reason: muscle spasm) Qty: 20 0RF tramadol 100 mg tablet 100 mg PO Q6H PRN (Reason: pain) Qty: 20 0RF cephalexin 500 mg capsule 500 mg PO QID Qty: 28 0RF naproxen 500 mg tablet 500 mg PO BID Qty: 30 0RF hydrocodone-acetaminophen 7.5-325 mg tablet 1 tab PO Q8H MDD 3 PRN (Reason: pain) Qty: 7 0RF cyclobenzaprine 5 mg tablet 5 mg PO TID PRN (Reason: muscle spasm) Qty: 14 0RF meclizine 50 mg tablet 50 mg PO BID PRN (Reason: dizziness) Qty: 30 0RF Referrals: Harriett Garcia MD [Primary Care Provider] - In 1 week Problem List Clinical Impression: Cellulitis Patient/Caregiver Discharge Instructions Discharge Activity: activity as tolerated Education Materials: ED Cellulitis Additional Instructions: Follow up with primary provider in 1-2 days. Come back to ED if symptoms change or worsen Print Language: Romanian Stand Alone Forms: Andreea Award Info., Patient Portal Info Letter PA/MOLDING SUPERVISOR Supervising Physician PA/MOLDING SUPERVISOR Supervising Physician: [email or web address]
== END 2024-10-21 09:24 | disposition home or self-care (01) ==
PROVIDERS: Emergency Provider Emergency Medicine; PCP Internal Medicine
DX: K12.2 Cellulitis and abscess of mouth (principal)
CPT/HCPCS: 99281

== ENCOUNTER → 2024-12-08 | Outpatient (CLI) | payer MEDICAID, SELFPAY ==
--- NOTE | 2024-12-08 14:07 | XR_ITS ---
Examination: Bilateral wrists 6 views TECHNIQUE: AP oblique lateral each wrist total 6 views Date and time: December 06, 2024 1439 hours INDICATIONS: Patient fell 6 months ago with injury to both wrists, bilateral wrist pain. FINDINGS: No fracture or dislocation involving either wrist No avascular necrosis No erosive or other significant arthritic change IMPRESSION: No fracture or dislocation involving either wrist No erosive or other significant arthritic change
--- NOTE | 2024-12-08 14:07 | XR_ITS ---
Examination: Bilateral hands, 6 views. Technique: AP, Oblique, Lateral each hand total 6 views Date and time of exam: December 08, 2024 at 1431 hours INDICATIONS: Patient fell 6 months ago with injury to both hands, bilateral hand pain. Findings: Mild bilateral juxta-articular bone demineralization No fracture or dislocation involving either hand No erosive arthritis No avascular necrosis IMPRESSION: No fracture involving either hand No erosive or other significant arthritic change involving either hand
== END | disposition home or self-care (01) ==
PROVIDERS: PCP Internal Medicine; Referring Provider Nurse Practitioner Gerontology; Visit Provider Nurse Practitioner Gerontology
DX: M25.531 Pain in right wrist (principal); M25.532 Pain in left wrist; M79.641 Pain in right hand; M79.642 Pain in left hand; S69.92XS Unspecified injury of left wrist, hand and finger(s), sequela; S69.91XS Unspecified injury of right wrist, hand and finger(s), sequela; W19.XXXS Unspecified fall, sequela
CPT/HCPCS: 73110; 73130

== ENCOUNTER 2024-12-28 09:30 | Outpatient (RCR) | payer MEDICAID, SELFPAY ==
--- NOTE | 2024-12-05 12:53 | PT.OIERPT ---
PT OP Initial Eval Patient Information Outpatient Physical Therapy Treatment Date: 12/05/24 Visit Reasons: Pain in RT shoulder/Left Shoulder Medical Diagnosis: Right Shoulder Pain; Left Shoulder Pain; Right lateral epicondylitis; Left lateral epicondylitis Treatment Dx #1: Bilateral Arm Pain Start of Care: 12/05/24 Date of Onset: 1 year ago Smoking Status Smoking Status: Never smoker Initial Assessment Subjective: Pt is a 44 y/o female reports of chronic arm and elbow pain after she fell ~ 1 year ago. According to patient if physical therapy does not help provider may order more imaging. Pt has limitation with overhead motions, lifting, chores, self care, cooking, cleaning, and performing recreational activities. Objective: Left Shoulder AROM Flexion: 90 deg Abduction: 90 deg External Rotation: 80 deg Internal Rotation: 70 deg Right Shoulder AROM Flexoin: 110 deg Abduction: 95 deg External Rotation: 90 deg Internal Rotation: 70 deg Left UE MMTs: grossly 3-/5 Right UE MMTs: grossly 3+/5 Bilateral Elbow AROML all motions are WNL Bilateral Elbow MMTs: grossly 4-/5 Pole Climber Strength L: 20 lbs R: 29 lbs Assessment: Pt demonstrate bilateral arm pain and weakness L>R leading to difficulty with ADLs. Pt will benefit from physical therapy to increase ROM, strength, and work on hand strength Short Term and Boiler Plant Operator Goals 1) Increase BUE AROM WFL in 6 wks to be able to perform overhead motions 2) Increase BUE MMTs grossly to 4-/5 in 6 wks to be able to perform recreational activities 3) Decrease shoulder pain to 2/10 in 6 wks to be able to perform chores 4) Increase left horse and wagon driver strength to 25 lbs in 6 wks to be able to perform self care with less limitation 5) Indep with HEP Treatment Plan 1) Manual Therapy 2) Therapeutic Activities 3) Therapeutic Exercises 4) Modalities (ice, heat) Frequency and Duration: 2 x wk for 6 wks Certification Dates: 12/05/24 to 03/07/25 Procedure Charges OP PT Eval Mod Complex 30 minutes: Yes
--- NOTE | 2024-12-08 13:30 | PT.ODAYNRPT ---
PT Outpatient Daily Note OP Daily Note Outpatient Physical Therapy Treatment Date: 12/08/24 Visit Reasons: Pain in RT shoulder/Left Shoulder Subjective: Pt's shoulder and elbow is popping with pain. Pt continues to experience pain. Objective: Please see flow chart for list of ther ex performed Assessment: tolerate exercises performed today and encourage to complete sci-fit due to patient starting to experience elbow pain towards the 5 min mallory. Plan: Continue with PT Length of Time (minutes) of Treatment: 30 Minutes Procedure Charges Therapeutic Exercise 30 minutes: Yes
--- NOTE | 2024-12-21 16:10 | PT.ODAYNRPT ---
PT Outpatient Daily Note OP Daily Note Outpatient Physical Therapy Treatment Date: 12/21/24 Visit Reasons: Pain in RT shoulder/Left Shoulder Subjective: Pt's shoulder and elbow hurts. Pt missed last week due to receiving shots in her right hand. Shots did not help the hand pain. Pt also wants to be seen for her neck and will follow up with provider for a PT order. Objective: Please see flow chart for list of ther ex perfromed Assessment: added 1# weight to wrist and elbow exercises with good tolerance Plan: Continue with PT Length of Time (minutes) of Treatment: 30 Minutes Procedure Charges Therapeutic Exercise 30 minutes: Yes
--- NOTE | 2024-12-26 10:53 | PT.ODAYNRPT ---
PT Outpatient Daily Note OP Daily Note Outpatient Physical Therapy Treatment Date: 12/26/24 Visit Reasons: Pain in RT shoulder/Left Shoulder Subjective: Pt c/o elbow pain today. Pt shared that she is scheduled to get an x-ray of shoulders today. Objective: Please see flow sheet for ther ex list. Assessment: Pt demonstrates poor activity tolerance due to pain response. Plan: Continue with POC. Length of Time (minutes) of Treatment: 30 Minutes Procedure Charges Therapeutic Exercise 30 minutes: Yes
--- NOTE | 2024-12-28 12:07 | PT.ODS1RPT ---
PT OP Progress/Discharge Note Date of Service: 12/28/24 Progress Note/DC Note Progress Note/Discharge Note: DC Note Patient Information Visit Reasons: Pain in RT shoulder/Left Shoulder Medical Diagnosis: Left Shoulder Pain; Right lateral epicondylitis; left lateral epicondylitis Treatment Dx #1: Bilateral Arm Pain Service Continue Service or Discharge: Discharge Discharge Date: 12/28/24 Status Subjective: Pt continues to have arm and elbow pain (12/10) with all ADLs. Physical therapy has not help much with improving her overall symptoms. At this time Pt like like to stop physical therapy and follow up with MD. Pt does take pain medication daily to help with the pain. 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 Pt will no longer benefit from physical therapy due to minimal progression towards goals. Pt was instructed on HEP last session and educated to continue exercises to maintain overall mobility. Pt perofmed all exercises safely, thank you for your referrals. Plan: D/C home with HEP and follow up with MD PRN Procedure Charges Therapeutic Exercise 30 minutes: Yes
== END 2024-12-31 23:59 | disposition home or self-care (01) ==
LOC: CPTX 09:30
PROVIDERS: PCP Family Medicine; Referring Provider Family Medicine; Visit Provider Family Medicine
DX: M25.512 Pain in left shoulder (principal); M25.511 Pain in right shoulder; M25.522 Pain in left elbow; M25.521 Pain in right elbow; R53.1 Weakness; M77.11 Lateral epicondylitis, right elbow; M77.12 Lateral epicondylitis, left elbow
CPT/HCPCS: 97110; 97162

== ENCOUNTER → 2024-12-28 | Outpatient (CLI) | payer MEDICAID, SELFPAY ==
--- NOTE | 2024-12-28 | XR_ITS ---
Shoulder bilateral, 6 views Technique: Shoulder AP internal rotation, AP external rotation, Y view shoulder internal total 6 views Indications: Bilateral shoulder pain after falling one year ago Exam date and time :December 28, 2024 1115 hrs. Findings: No fracture or dislocation involving either shoulder No significant arthritic change involving either shoulder No calcific tendinitis Impression: No fracture or dislocation involving either shoulder No calcific tendinitis
--- NOTE | 2024-12-28 10:44 | XR_ITS ---
Examination: Left knee 2 views Technique: AP lateral standing left knee 2 views Date and time: 22,025 1124 hrs. Indications: Patient fell one year ago with injury of the knee, knee pain. Findings: No fracture or dislocation. Mild to moderate tricompartment osteoarthritis No foreign body Impression: No fracture or dislocation.
== END | disposition home or self-care (01) ==
LOC: CDIM 10:28
PROVIDERS: PCP Internal Medicine; Referring Provider Family Medicine; Visit Provider Internal Medicine
DX: M17.10 Unilateral primary osteoarthritis, unspecified knee (principal); M25.511 Pain in right shoulder; M25.512 Pain in left shoulder; M25.562 Pain in left knee; S49.92XS Unspecified injury of left shoulder and upper arm, sequela; S49.91XS Unspecified injury of right shoulder and upper arm, sequela; S89.92XS Unspecified injury of left lower leg, sequela; W19.XXXS Unspecified fall, sequela
CPT/HCPCS: 73030; 73560

== ENCOUNTER 2025-02-28 21:56 | Emergency (ER) | payer MEDICAID, SELFPAY ==
[2025-02-28 21:56] VITALS: BMI 65.6
[2025-02-28 23:05] VITALS: BP 166/87; PULSE 87; RESP 20; TEMP 36.9; O2SAT 98
--- NOTE | 2025-02-28 23:29 | PD.EDANX ---
ED Anxiety RME/HPI General Chief Complaint: Anxiety Stated Complaint: PANIC ATTACK Time Seen by Provider: 02/28/25 23:14 Arrival date/time: 02/28/25 21:56 44F with history of HTN, asthma, and psych presents to ED with panic attack after she accidentally took 2 oxys. Patient also has some L-sided arm and chest tingling. Symptoms are improving. Limitations: no limitations Related Data Previous Rx's ?Medication ?Instructions ?Recorded hydrocodone 5 mg-acetaminophen 325 1 tab PO BID PRN pain #10 tabs 06/13/21 mg tablet ibuprofen 800 mg tablet 800 mg PO TID PRN pain #30 tabs 06/13/21 tramadol 50 mg tablet 50 mg PO TID PRN pain #21 tabs 11/21/21 cyclobenzaprine 10 mg tablet 10 mg PO TID PRN muscle spasm #20 01/17/22 tabs tramadol 50 mg tablet 50 mg PO TID PRN pain #21 tabs 01/17/22 cephalexin 500 mg capsule 500 mg PO QID #28 caps 03/08/22 tramadol 100 mg tablet 100 mg PO Q6H PRN pain #20 tabs 03/08/22 acetaminophen 500 mg capsule 500 mg PO Q6H PRN pain #60 caps 09/24/22 baclofen 5 mg tablet 5 mg PO BID #30 tabs 09/24/22 hydrocodone 5 mg-acetaminophen 325 1 tab PO BID PRN pain #10 tabs 12/25/22 mg tablet ibuprofen 800 mg tablet 800 mg PO TID PRN pain #30 tabs 12/25/22 naproxen 500 mg tablet 500 mg PO BID #30 tabs 07/19/23 acetaminophen 500 mg tablet 1,000 mg (2 x 500 mg) PO Q6H PRN 01/16/24 (Tylenol Extra Strength) pain #30 tabs ibuprofen 600 mg tablet 600 mg PO Q6H PRN pain #30 tabs 01/16/24 cyclobenzaprine 5 mg tablet 5 mg PO TID PRN muscle spasm #14 04/27/24 tabs hydrocodone 7.5 mg-acetaminophen 1 tab PO Q8H PRN pain #7 tabs 04/27/24 325 mg tablet meclizine 50 mg tablet 50 mg PO BID PRN dizziness #30 tabs 05/20/24 naproxen sodium 550 mg tablet 550 mg PO Q12H PRN pain #20 tabs 09/13/24 ibuprofen 800 mg tablet 800 mg PO Q6H PRN pain #14 tabs 10/21/24 Allergies Allergy/AdvReac Type Severity Reaction Status Date / Time adhesive tape Allergy Severe rash Verified 02/28/25 21:56 Penicillins Allergy Severe Rash Verified 02/28/25 21:56 Sulfa (Sulfonamide Allergy Severe Rash Verified 02/28/25 21:56 Antibiotics) Review of Systems Review of Systems Systems Reviewed: All systems reviewed, normal except as documented Musculoskeletal Musculoskeletal: Reports tingling Neurologic Neurologic: Reports as per HPI and Reports tingling Psychiatric Psychiatric: Reports as per HPI and Reports panic attacks Past Medical History Past Medical History NEUROLOGIC: Negative Neurological Disorders CARDIAC: Positive Hypertension; Negative Cardiac Disorders or Congestive Heart Failure RESPIRATORY: Positive Asthma and Sleep Apnea; Negative Chronic Obstructive Pulmonary Disease (COPD) GASTROINTESTINAL: Positive Gastrointestinal Disorders, Gastroesophageal Reflux Disease and Obesity GENITOURINARY: Negative Renal Disease MUSCULOSKELETAL: Positive Musculoskeletal Disorders, Arthritis and Degenerative Joint Disease ENDOCRINE: Negative Diabetes Mellitus Type 1 or Diabetes Mellitus Type 2 HEMATOLOGIC: Negative Sickle Cell Disease PSYCHO/SOCIAL: Positive Bipolar Disorder, Depression and Anxiety Surgical History SURGICAL: Positive Section Social History SMOKING STATUS: Former smoker SUBSTANCE USE: does not use ED Exam General Limitations: Present no limitations General appearance: Present alert, in no apparent distress and anxious Head Head exam: Present atraumatic Eye Eye exam: Present normal appearance, PERRL and EOMI Neck Neck exam: Present normal inspection, full ROM and trachea midline Chest Chest inspection: Present normal inspection and symmetric chest wall rise Neurological Exam Neurological exam: Present alert, oriented X3 and CN II-XII intact Psychiatric Psychiatric exam: Present normal affect and anxious Skin Skin exam: Present warm, dry, intact and normal color Course Quality Measures none Orders Category Date Time Status Diazepam [Valium] Med 02/28/25 23:15 Discontinued 10 mg PO X1 ONE Vital Signs Vital signs: Vital Signs Temperature 98.4 F 02/28/25 23:05 Pulse Rate 87 02/28/25 23:05 Respiratory Rate 20 02/28/25 23:05 Blood Pressure 166/87 H 02/28/25 23:05 Pulse Oximetry (%) 98 02/28/25 23:05 Oxygen Delivery Method Room Air 02/28/25 23:05 Anxiety MDM Narrative MDM Narrative: 44F with history of HTN, asthma, and psych presents to ED with panic attack after she accidentally took 2 oxys. Patient also has some L-sided arm and chest tingling. Symptoms are improving. Physical exam reveals normal pupil response and EOM. CN II-XII grossly intact. Neg pronator drift test. Speech normal. Gait normal. Normal WOB. Patient is afebrile, alert, but anxious. Meds improved symptoms. Data Technician given. Patient data External records reviewed:: [facility] previous records Clinical information provided by:: patient Social determinants that could affect healthcare access:: mental health Patient has the following chronic illnesses:: HTN, asthma, and psych How is presenting disease/condition affected by chronic disease/condition?: exacerbated by Evaluation data The following diagnostics were reviewed and interpreted by me:: other (specify) (none) Lab and/or radiology exams considered but not ordered:: not ordered Interpretation Summary: n/a Medications / Prescriptions Medications or Prescriptions considered but not ordered:: ordered Medication administrations:: Medication Administration History Discontinued Medications Diazepam (Diazepam 5 Mg Tablet) 10 mg PO X1 ONE Stop: 02/28/25 23:16 Consultations Consultation(s) initiated? (list below): No Diagnosis Differential diagnosis anxiety: hyperventilation, panic disorder (attack) and acute anxiety Most likely diagnosis given after review of the tests above:: panic attack Admission Indicated Admission indicated?: not indicated Admission Request Was there a request for admission?: No Disposition Plan Disposition Plan: Discharge Discharge Attestation Discharge Attestation: The patient and all family members were given an opportunity to ask questions and understood the discharge instructions. Discharge instructions specifically effects, indications for sooner follow up or return to the emergency department, and the expected course of current diagnosis. Patient condition: Stable Discharge Plan Plan Patient Disposition: HOME (Self Care) Discharge Disposition comment: Stable Prescriptions/Referrals Prescriptions/Med Rec: No Action ibuprofen 800 mg tablet 800 mg PO TID PRN (Reason: pain) Qty: 30 0RF hydrocodone-acetaminophen 5-325 mg tablet 1 tab PO BID MDD 10 PRN (Reason: pain) Qty: 10 0RF tramadol 50 mg tablet 50 mg PO TID PRN (Reason: pain) Qty: 21 0RF acetaminophen 500 mg capsule 500 mg PO Q6H PRN (Reason: pain) Qty: 60 0RF baclofen 5 mg tablet 5 mg PO BID Qty: 30 0RF ibuprofen 800 mg tablet 800 mg PO TID PRN (Reason: pain) Qty: 30 0RF hydrocodone-acetaminophen 5-325 mg tablet 1 tab PO BID MDD 10 PRN (Reason: pain) Qty: 10 0RF ibuprofen 600 mg tablet 600 mg PO Q6H PRN (Reason: pain) Qty: 30 0RF acetaminophen [Tylenol Extra Strength] 500 mg tablet 1,000 mg PO Q6H PRN (Reason: pain) Qty: 30 0RF naproxen sodium 550 mg tablet 550 mg PO Q12H PRN (Reason: pain) Qty: 20 0RF ibuprofen 800 mg tablet 800 mg PO Q6H PRN (Reason: pain) Qty: 14 0RF tramadol 50 mg tablet 50 mg PO TID PRN (Reason: pain) Qty: 21 0RF cyclobenzaprine 10 mg tablet 10 mg PO TID PRN (Reason: muscle spasm) Qty: 20 0RF tramadol 100 mg tablet 100 mg PO Q6H PRN (Reason: pain) Qty: 20 0RF cephalexin 500 mg capsule 500 mg PO QID Qty: 28 0RF naproxen 500 mg tablet 500 mg PO BID Qty: 30 0RF hydrocodone-acetaminophen 7.5-325 mg tablet 1 tab PO Q8H MDD 3 PRN (Reason: pain) Qty: 7 0RF cyclobenzaprine 5 mg tablet 5 mg PO TID PRN (Reason: muscle spasm) Qty: 14 0RF meclizine 50 mg tablet 50 mg PO BID PRN (Reason: dizziness) Qty: 30 0RF Referrals: Harriett Garcia MD [Primary Care Provider, Internal Medicine] - In 1 week Problem List Clinical Impression: Panic attack Patient/Caregiver Discharge Instructions Education Materials: Your Body's Response to Anxiety Additional Instructions: Please follow-up with PCP within 24-48 hours and return immediately if symptoms worsen. Print Language: Czech Stand Alone Forms: Patient Portal Info Letter PA/HOUSEHOLD APPLIANCE REPAIRER Supervising Physician MEENA/DAFNE Supervising Physician: Dr. Joseph
[2025-03-01] MEDS: DIAZEPAM 5 MG TABLET 10 MG PO (00:11)
== END 2025-03-01 01:20 | disposition home or self-care (01) ==
PROVIDERS: Emergency Provider Emergency Medicine; PCP Internal Medicine
DX: F41.0 Panic disorder [episodic paroxysmal anxiety] (principal); I10 Essential (primary) hypertension; J45.909 Unspecified asthma, uncomplicated
CPT/HCPCS: 99281; A9270

== ENCOUNTER → 2025-04-24 | Outpatient (CLI) | payer MEDICAID, SELFPAY ==
--- NOTE | 2025-04-24 16:00 | XR_ITS ---
Examination: Screening digital mammography, bilateral Computer aided detection 3-D breast Tomosynthesis, bilateral Date and time of exam: April 24, 2025, 1359 hours, comparison March 10, 2021 Indication: Screening Technique: Nonmagnified MLO, CC views of the breasts to been obtained, reconstructed from 3-D Tomosynthesis images. R2 computer aided detection program utilized for evaluation of suspicious masses and/or abnormal calcifications. 3-D Tomosynthesis images obtained. Findings: Scattered areas of fibroglandular density. Benign calcifications. No interval suspicious masses Impression: BI-RADS category II: Benign Findings. Recommend 1 year follow-up mammogram.
== END | disposition home or self-care (01) ==
PROVIDERS: Referring Provider Internal Medicine; Visit Provider Internal Medicine
DX: Z12.31 Encounter for screening mammogram for malignant neoplasm of breast (principal); R92.323 Mammographic fibroglandular density, bilateral breasts; R92.1 Mammographic calcification found on diagnostic imaging of breast
CPT/HCPCS: 77063; 77067